=== PATIENT | male | born 1985 | race Caucasian/White ===

== ENCOUNTER 2025-09-30 05:37 | Observation (INO) | payer BC ==
[~2025-09-30] VITALS: Ht 180.3 cm; Wt 105.8 kg
[2025-09-30] MEDS ORDERED: NS 1,000 ML IV SCH (08:15)
[2025-09-30 08:32] LABS: BASOPHILS ABSOLUTE AUTO 0.04 K/mm3 (0.00-0.23); BASOPHILS PERCENT AUTO 0 % (0-2); EOSINOPHILS ABSOLUTE AUTO 0.03 K/mm3 (0.00-0.68); EOSINOPHILS PERCENT AUTO 0 % (0-6); Hematocrit 43.7 % (37.0-53.0); Hemoglobin 15.0 g/dL (13.5-17.5); IMMATURE GRAN ABSOLUTE AUTO 0.13 K/mm3 (0.00-0.10); IMMATURE GRAN PERCENT AUTO 1 % (0-1); LYMPHOCYTES ABSOLUTE AUTO 0.63 K/mm3 (0.84-5.20); LYMPHOCYTES PERCENT AUTO 5 % (21-46); MONOCYTES ABSOLUTE AUTO 0.80 K/mm3 (0.16-1.47); MONOCYTES PERCENT AUTO 6 % (4-13); Mean Corpuscular HGB Conc 34.3 g/dL (31.5-36.5); Mean Corpuscular Volume 87 fL (80-100); NEUTROPHILS ABSOLUTE AUTO 10.98 K/mm3 (1.96-9.15); NEUTROPHILS PERCENT AUTO 87 % (41-73); NRBC ABSOLUTE 0.00 K/mm3 (0.00-0.02); NRBC Auto 0.0 /100 WBC (0.0-0.2); Platelet Count 372 K/mm3 (150-400); RDW Coefficient Variation 12.9 % (11.7-14.2); RDW Standard Deviation 41.6 fL (35.1-46.3)
[2025-09-30 08:54] LABS: Alanine Aminotransfer (ALT/SGP 38.0 U/L (12-78); Albumin, Blood 3.6 g/dL (3.4-5.0); Albumin/Globulin Ratio 0.9 (0.8-1.8); Anion Gap 13.0 mmol/L (3-11); Aspartate Aminotrans (AST/SGOT 22.0 U/L (12-37); Bilirubin, Total 0.8 mg/dL (0.1-1.0); Blood Urea Nitrogen 11.0 mg/dL (8-24); CO2, Blood 23.0 mmol/L (21-32); Calcium, Blood 9.0 mg/dL (8.5-10.1); Chloride, Blood 101.0 mmol/L (98-108); Creatinine, Blood 0.85 mg/dL (0.60-1.20); Globulin, Blood 4.1 g/dL (2.2-4.0); Glucose, Blood 111.0 mg/dL (70-99); Potassium, Blood 4.2 mmol/L (3.5-5.5); Sodium, Blood 133.0 mmol/L (136-145); Total Protein, Blood 7.7 g/dL (6.4-8.2)
[2025-09-30 09:13] LABS: Influenza A, PCR NEGATIVE (NEGATIVE); Influenza B, PCR NEGATIVE (NEGATIVE); Resp Syncytial Virus, PCR NEGATIVE (NEGATIVE); SARS-Cov-2 (COVID-19) PCR, MMC NEGATIVE (NEGATIVE)
[2025-09-30] MEDS ORDERED: CefTRIAXone Sodium 1,000 MG in NS 100 ML IV ONE (10:10)
[2025-09-30] MEDS ORDERED: FLU VACC TS2025-26(6MOS UP)/PF 45 MCG/0.5 ML SYRINGE IM SCH (10:40)
[2025-09-30] MEDS ORDERED: FLUTICASONE-SA1 EAC9 INH (11:12)
[2025-09-30] MEDS ORDERED: PROAIR RESPICL90 MCG INH (11:12)
[2025-09-30] MEDS ORDERED: ZESTRIL40 M1 PO (11:12)
[2025-09-30] MEDS ORDERED: PROZAC2010 PO (11:13)
[2025-09-30 12:17] VITALS: BP 123/83
[2025-09-30 15:46] VITALS: BP 123/77
[2025-09-30] MEDS ORDERED: Albuterol HFA200 ACT/6.7 GM INH INH PRN (18:00)
--- NOTE | 2025-09-30 18:35 | NUR ---
SHIFT SUMMARY A/OX4, IND IN ROOM. CURRENTLY ON 2L 02. RECIEVING IV ABX. DENIES CP/PRESSURE. NO ACUTE CHANGES AT THIS TIME.
[2025-09-30 19:19] VITALS: BP 122/77
[2025-09-30] MEDS ORDERED: Guaifenesin/Dextromethorphan Syrup 5 ML UDC PO PRN (20:00)
[2025-09-30 22:56] LABS: Influenza A/2009-H1 Not Detected (NOT DETECT); SARS-Cov-2 (COVID-19), BioFire Not Detected (NOT DETECT)
[2025-10-01 04:13] VITALS: BP 126/76
[2025-10-01 05:20] LABS: BASOPHILS ABSOLUTE AUTO 0.06 K/mm3 (0.00-0.23); BASOPHILS PERCENT AUTO 1 % (0-2); EOSINOPHILS ABSOLUTE AUTO 0.14 K/mm3 (0.00-0.68); EOSINOPHILS PERCENT AUTO 1 % (0-6); Hematocrit 42.1 % (37.0-53.0); Hemoglobin 14.3 g/dL (13.5-17.5); IMMATURE GRAN ABSOLUTE AUTO 0.45 K/mm3 (0.00-0.10); IMMATURE GRAN PERCENT AUTO 4 % (0-1); LYMPHOCYTES ABSOLUTE AUTO 1.04 K/mm3 (0.84-5.20); LYMPHOCYTES PERCENT AUTO 10 % (21-46); MONOCYTES ABSOLUTE AUTO 0.99 K/mm3 (0.16-1.47); MONOCYTES PERCENT AUTO 9 % (4-13); Mean Corpuscular HGB Conc 34.0 g/dL (31.5-36.5); Mean Corpuscular Volume 89 fL (80-100); NEUTROPHILS ABSOLUTE AUTO 8.13 K/mm3 (1.96-9.15); NEUTROPHILS PERCENT AUTO 75 % (41-73); NRBC ABSOLUTE 0.00 K/mm3 (0.00-0.02); NRBC Auto 0.0 /100 WBC (0.0-0.2); Platelet Count 335 K/mm3 (150-400); RDW Coefficient Variation 12.7 % (11.7-14.2); RDW Standard Deviation 42.0 fL (35.1-46.3)
[2025-10-01 05:47] LABS: Alanine Aminotransfer (ALT/SGP 34.0 U/L (12-78); Albumin, Blood 3.2 g/dL (3.4-5.0); Albumin/Globulin Ratio 0.8 (0.8-1.8); Anion Gap 10.0 mmol/L (3-11); Aspartate Aminotrans (AST/SGOT 25.0 U/L (12-37); Bilirubin, Total 0.8 mg/dL (0.1-1.0); Blood Urea Nitrogen 10.0 mg/dL (8-24); CO2, Blood 28.0 mmol/L (21-32); Calcium, Blood 8.7 mg/dL (8.5-10.1); Chloride, Blood 99.0 mmol/L (98-108); Creatinine, Blood 0.95 mg/dL (0.60-1.20); Globulin, Blood 3.9 g/dL (2.2-4.0); Glucose, Blood 102.0 mg/dL (70-99); Magnesium, Blood 2.3 mg/dL (1.6-2.4); Potassium, Blood 4.2 mmol/L (3.5-5.5); Sodium, Blood 133.0 mmol/L (136-145); Total Protein, Blood 7.1 g/dL (6.4-8.2)
--- NOTE | 2025-10-01 06:42 | NUR ---
SHIFT SUMMARY; PT A/OX4, INDEPENDENT, AND PLEASANT. COURSE CRACKLES HEARD UPON AUSCULTATION WITHIN RLL LOBE. PT REQUESTED COUGH SUPPRESSANT DUE TO DRY, HACKING COUGH. CALL PLACED TO PROVIDER DINESH FOR REQUEST. PT MEDICATED PER EMAR. PCR RESP PANEL COLLECTED AND RESULTS POSITIVE. SEE RESULTS. PT IS NOW IN DROPLET PRECAUTION. DR. OLIVO NOTIFIED OF POSITIVE RESULT. VSS, PT REMAINED AFEBRILE. BED IN LOWEST POSITION AND CALL LIGHT WITHIN REACH.
[2025-10-01 07:21] VITALS: BP 118/77
[2025-10-01] MEDS ORDERED: Enoxaparin 40 MG/0.4 ML SYR SC SCH (09:00)
[2025-10-01] MEDS ORDERED: CefTRIAXone Sodium 1,000 MG in NS 100 ML IV SCH (11:00)
[2025-10-01] MEDS ORDERED: NS 250 ML IV PRN (11:00)
[2025-10-01 15:16] VITALS: BP 116/76
--- NOTE | 2025-10-01 16:56 | NUR ---
PATIENT A/OX4, UP INDEPENDENTLY IN ROOM. SATS GREATER THAN 92% ON RA EVEN WITH AMBULATION. PATIENT FEELING BETTER THIS EVENING. DENIES ANY PAIN, SKIN INTACT. PLEASANT AND COOPERATIVE WITH CARE. NO NEW CONCERNS THIS SHIFT.
[2025-10-01] MEDS ORDERED: DEPO-TESTO200 MG/18 IM (19:03)
[2025-10-01 20:00] VITALS: BP 122/66
[2025-10-02 04:18] VITALS: BP 125/66
--- NOTE | 2025-10-02 06:11 | NUR ---
PT HAS BEEN UP INDEPENDENT IN RM, MOIST PRODUCTIVE COUGH WITH THIN YELLOW CLEAR SPUTUM NOTED, L LOBES ARE DIMINISHED, PT HAS BEEN ON RA WITH SPO2 WNL T/O THE NIGHT. PT SLEPT W/O DIFFICULTY.
[2025-10-02 06:29] LABS: BASOPHILS ABSOLUTE AUTO 0.07 K/mm3 (0.00-0.23); BASOPHILS PERCENT AUTO 1 % (0-2); EOSINOPHILS ABSOLUTE AUTO 0.19 K/mm3 (0.00-0.68); EOSINOPHILS PERCENT AUTO 2 % (0-6); Hematocrit 44.4 % (37.0-53.0); Hemoglobin 14.8 g/dL (13.5-17.5); IMMATURE GRAN ABSOLUTE AUTO 0.41 K/mm3 (0.00-0.10); IMMATURE GRAN PERCENT AUTO 5 % (0-1); LYMPHOCYTES ABSOLUTE AUTO 1.45 K/mm3 (0.84-5.20); LYMPHOCYTES PERCENT AUTO 17 % (21-46); MONOCYTES ABSOLUTE AUTO 0.94 K/mm3 (0.16-1.47); MONOCYTES PERCENT AUTO 11 % (4-13); Mean Corpuscular HGB Conc 33.3 g/dL (31.5-36.5); Mean Corpuscular Volume 89 fL (80-100); NEUTROPHILS ABSOLUTE AUTO 5.51 K/mm3 (1.96-9.15); NEUTROPHILS PERCENT AUTO 64 % (41-73); NRBC ABSOLUTE 0.00 K/mm3 (0.00-0.02); NRBC Auto 0.0 /100 WBC (0.0-0.2); Platelet Count 362 K/mm3 (150-400); RDW Coefficient Variation 12.8 % (11.7-14.2); RDW Standard Deviation 41.9 fL (35.1-46.3)
[2025-10-02 06:56] LABS: Albumin, Blood 3.3 g/dL (3.4-5.0); Anion Gap 9 mmol/L (3-11); Blood Urea Nitrogen 9 mg/dL (8-24); CO2, Blood 29 mmol/L (21-32); Calcium, Blood 8.8 mg/dL (8.5-10.1); Chloride, Blood 100 mmol/L (98-108); Creatinine, Blood 0.97 mg/dL (0.60-1.20); Glucose, Blood 103 mg/dL (70-99); Phosphorus, Blood 4.4 mg/dL (2.5-4.9); Potassium, Blood 4.2 mmol/L (3.5-5.5); Sodium, Blood 134 mmol/L (136-145)
[2025-10-02 07:15] VITALS: BP 118/76
[2025-10-02] MEDS ORDERED: VISBIOME 112.51 EACH PO (13:32)
[2025-10-02] MEDS ORDERED: LEVOFLOXACIN750 MG PO (13:32)
--- NOTE | 2025-10-02 13:45 | NUR ---
PATIENT DC'D TO HOME WITH FAMILY. DC INSTRUCTIONS AND EDUCATION DISCUSSED WITH PATIENT AND COPY PROVIDED. RX MEDICATIONS FAXED TO [facility]. PATIENT DENIES ANY FURTHER QUESTIONS OR CONCERNS.
== END 2025-10-02 14:09 | disposition home or self-care (01) ==
LOC: ER 05:37 → MEDS 05:38 → ENPENDDIS 10-02 11:47 → MEDS 10-02 14:09
PROVIDERS: Emergency Medicine; Family Medicine; Student in an Organized Health Care Education/Training Program; ADMIT Internal Medicine
DX: J15.7 Pneumonia due to Mycoplasma pneumoniae (principal); J96.01 Acute respiratory failure with hypoxia; E87.1 Hypo-osmolality and hyponatremia; I10 Essential (primary) hypertension; G47.33 Obstructive sleep apnea (adult) (pediatric); Z79.899 Other long term (current) drug therapy
CPT/HCPCS: 0202U; 36415; 71046; 80053; 80069; 83605; 83735; 84145; 85025; 87040; 87637; 94762; 96361; 96365; 96366; 96368; 96372; 96376; 99285-25; A9270; G0378; J0456; J0696; J1650; J7030; J7050